=== PATIENT | female | born 1980 | race Caucasian/White ===

== ENCOUNTER → 2019-07-27 | Outpatient (CLI) | payer OTHER ==
[~2019-07-27] MED LIST: ALBIPROI INH; ALBU90OI INH; BCP; CETI10 PO; CETI5 PO; DESO.05TCA TP; HYDACE5 PO; PRED20 PO; RXLORA1 PO; RXSULTRIDS PO; SULTRIDS PO
[2019-07-31 13:07] LABS: HPV 16 Negative (Negative); HPV 18 Negative (Negative); HPV OTHER HR TYPES Negative (Negative)
== END | disposition home or self-care (01) ==
LOC: LAB SHORT 11:50 → LAB 11:50
PROVIDERS: Obstetrics & Gynecology
DX: Z01.419 Encounter for gynecological examination (general) (routine) without abnormal findings (principal)
CPT/HCPCS: 87624; G0123

== ENCOUNTER 2021-02-28 08:46 | Day surgery (SDC) | payer BC ==
[~2021-02-28] VITALS: Ht 170.2 cm; Wt 76.0 kg
--- NOTE | 2021-02-28 09:56 | NUR ---
Ambulatory in Day Surgery History, Chart, Medications and Allergies reviewed before start of procedure. Lungs clear T/O to Auscultation. Patient confirms NPO status and agrees with scheduled surgery. Patient States Post-Procedure ride home has been arranged.
--- NOTE | 2021-02-28 12:50 | NUR ---
PT HAS SMALL AMOUNT OF BURGAUNDY DRAINAGE ON CARLA PAD. PT RECEIVED ONE PAIN PILL AND PO ABX. PT UP TO PEE WITHOUT DIFFICULTY. Patient up to Ambulate independently. Gait steady. Patient States Post-Procedure ride home has been arranged. Discharged via wheelchair to private car for ride home. ALL BELONINGS SENT HOME WITH PATIENT.
[2021-03-03 14:04] LABS: Performing Lab SYMBIODX; Test Name TISSUE BLOCK
== END 2021-03-01 00:37 | disposition home or self-care (01) ==
LOC: ORSCMMR 08:46 → ORD 10:30 → ORSCMMR 10:30
PROVIDERS: Obstetrics & Gynecology
PROC: 10D07Z6 Extraction of Products of Conception, Vacuum, Via Natural or Artificial Opening (ICD-10-PCS; principal; 2021-02-28 10:30)
DX: O36.80X9 Pregnancy with inconclusive fetal viability, other fetus (principal); E28.2 Polycystic ovarian syndrome; F17.210 Nicotine dependence, cigarettes, uncomplicated; J45.990 Exercise induced bronchospasm; Z79.899 Other long term (current) drug therapy
CPT/HCPCS: 36415; 76998; 86850; 86900; 86901; 88305; 88342; 88374; A9270; J1100; J1885; J2210; J2370; J2405; J3010; J7060; J7120

== ENCOUNTER 2022-01-31 16:11 | Emergency (ER) | payer OTHER ==
[~2022-01-31] VITALS: Ht 170.2 cm; Wt 72.6 kg
[2022-01-31 17:32] LABS: BASOPHILS ABSOLUTE AUTO 0.06 K/mm3 (0.00-0.23); BASOPHILS PERCENT AUTO 1 % (0-2); EOSINOPHILS ABSOLUTE AUTO 0.14 K/mm3 (0.00-0.68); EOSINOPHILS PERCENT AUTO 1 % (0-6); Hematocrit 39.9 % (33.0-51.0); Hemoglobin 13.4 g/dL (11.5-16.0); IMMATURE GRAN ABSOLUTE AUTO 0.04 K/mm3 (0.00-0.10); IMMATURE GRAN PERCENT AUTO 0 % (0-1); LYMPHOCYTES ABSOLUTE AUTO 2.72 K/mm3 (0.84-5.20); LYMPHOCYTES PERCENT AUTO 22 % (21-46); MONOCYTES ABSOLUTE AUTO 0.96 K/mm3 (0.16-1.47); MONOCYTES PERCENT AUTO 8 % (4-13); Mean Corpuscular HGB 31.5 pg (26.0-34.0); Mean Corpuscular HGB Conc 33.6 g/dL (31.5-36.5); Mean Corpuscular Volume 94 fL (80-100); Mean Platelet Volume 11.1 fL (9.1-12.4); NEUTROPHILS ABSOLUTE AUTO 8.53 K/mm3 (1.96-9.15); NEUTROPHILS PERCENT AUTO 69 % (41-73); Platelet Count 221 K/mm3 (150-400); RDW Coefficient Variation 13.8 % (11.7-14.2); RDW Standard Deviation 47.5 fL (35.1-46.3); Red Blood Cell Count 4.26 M/mm3 (3.80-5.20); White Blood Cell Count 12.45 K/mm3 (4.00-11.30)
[2022-01-31 17:46] LABS: Albumin, Blood 3.4 g/dL (3.4-5.0); Albumin/Globulin Ratio 1.2 (0.8-1.8); Bilirubin, Total 0.2 mg/dL (0.1-1.0); Bun/Creatinine Ratio 26.7 (12.0-20.0); Calcium, Blood 8.6 mg/dL (8.5-10.1); Creatinine, Blood 0.6 mg/dL (0.40-1.00); Globulin, Blood 2.9 g/dL (2.2-4.0); Potassium, Blood 4.2 mmol/L (3.5-5.5); Total Protein, Blood 6.3 g/dL (6.4-8.2)
[2022-01-31 18:01] LABS: Source, Urine Clean Catch
[2022-01-31 18:08] LABS: Appearance, Urine Clear (Clear); Bilirubin, Urine Neg (Neg); Blood, Urine 5+ (Neg); Color, Urine Yellow (P-Yellow); Glucose Qualitative, Urine Neg (Neg); Ketones, Urine Neg (Neg); Leukocyte Esterase, Urine 1+ (Neg); Nitrite, Urine Neg (Neg); Protein, Urine Neg (Neg); Specific Gravity, Urine 1.005 (1.003-1.022); Urobilinogen, Urine NORM (Normal)
[2022-01-31 18:20] LABS: Bacteria Few /hpf; Squamous Epithelial Cells Few /hpf (Few)
== END 2022-01-31 19:36 | disposition home or self-care (01) ==
LOC: ER 16:11
PROVIDERS: Physician Assistant
DX: O20.0 Threatened abortion (principal); Z3A.08 8 weeks gestation of pregnancy; Z87.891 Personal history of nicotine dependence
CPT/HCPCS: 76801; 80053; 81001; 84702; 85025; 86900; 86901; 93005; 93010; J0153; J7030

== ENCOUNTER 2022-09-10 20:04 | Inpatient (IN) | payer OTHER ==
[~2022-09-10] VITALS: Ht 170.2 cm; Wt 95.4 kg
[2022-09-10] MEDS ORDERED: FISH OIL 1,2001 EAC4 PO (22:42)
[2022-09-10] MEDS ORDERED: ONE A DAY PREN1 EACH PO (22:43)
[2022-09-10 23:12] LABS: BASOPHILS ABSOLUTE AUTO 0.04 K/mm3 (0.00-0.23); BASOPHILS PERCENT AUTO 0 % (0-2); EOSINOPHILS ABSOLUTE AUTO 0.22 K/mm3 (0.00-0.68); EOSINOPHILS PERCENT AUTO 2 % (0-6); Hematocrit 40.4 % (33.0-51.0); Hemoglobin 13.8 g/dL (11.5-16.0); IMMATURE GRAN ABSOLUTE AUTO 0.09 K/mm3 (0.00-0.10); IMMATURE GRAN PERCENT AUTO 1 % (0-1); LYMPHOCYTES ABSOLUTE AUTO 2.25 K/mm3 (0.84-5.20); LYMPHOCYTES PERCENT AUTO 19 % (21-46); MONOCYTES ABSOLUTE AUTO 0.94 K/mm3 (0.16-1.47); MONOCYTES PERCENT AUTO 8 % (4-13); Mean Corpuscular HGB 31.1 pg (26.0-34.0); Mean Corpuscular HGB Conc 34.2 g/dL (31.5-36.5); Mean Corpuscular Volume 91 fL (80-100); Mean Platelet Volume 10.4 fL (9.1-12.4); NEUTROPHILS ABSOLUTE AUTO 8.47 K/mm3 (1.96-9.15); NEUTROPHILS PERCENT AUTO 71 % (41-73); Platelet Count 176 K/mm3 (150-400); RDW Coefficient Variation 13.3 % (11.7-14.2); RDW Standard Deviation 44.9 fL (35.1-46.3); Red Blood Cell Count 4.44 M/mm3 (3.80-5.20); White Blood Cell Count 12.01 K/mm3 (4.00-11.30)
--- NOTE | 2022-09-12 14:48 | NUR ---
DISCHARGE INSTRUCTIONS, WRITTEN AND VERBAL, GIVEN TO PT AND S.O. ANSWERED ALL QUESTIONS AND CONCERNS. FOLLOW UP APPOINTMENT SCHEDULED. ALL PERSONAL BELONGINGS RETURNED. IV DISCONTINUED. PRESCRIPTION CALLED IN BY DR. TRINH. PT IS READY FOR DISCAHRGE AFTER NB 24 HOUR TESTS.
== END 2022-09-12 16:18 | disposition home or self-care (01) | DRG 807 ==
LOC: OBS 20:04 → BC 20:07 → OBS 20:28 → BC 20:29
PROVIDERS: ADMIT Obstetrics & Gynecology
PROC: 10E0XZZ Delivery of Products of Conception, External Approach (ICD-10-PCS; principal; 2022-09-11)
PROC: 3E033VJ Introduction of Other Hormone into Peripheral Vein, Percutaneous Approach (ICD-10-PCS; 2022-09-11)
PROC: 10907ZC Drainage of Amniotic Fluid, Therapeutic from Products of Conception, Via Natural or Artificial Opening (ICD-10-PCS; 2022-09-11)
PROC: 3E0P7VZ Introduction of Hormone into Female Reproductive, Via Natural or Artificial Opening (ICD-10-PCS; 2022-09-11)
PROC: 0UQMXZZ Repair Vulva, External Approach (ICD-10-PCS; 2022-09-11)
PROC: 00HU33Z Insertion of Infusion Device into Spinal Canal, Percutaneous Approach (ICD-10-PCS; 2022-09-11)
PROC: 3E0R3NZ Introduction of Analgesics, Hypnotics, Sedatives into Spinal Canal, Percutaneous Approach (ICD-10-PCS; 2022-09-11)
PROC: 0HQ9XZZ Repair Perineum Skin, External Approach (ICD-10-PCS; 2022-09-11)
DX: O48.0 Post-term pregnancy (principal); Z37.0 Single live birth; Z3A.40 40 weeks gestation of pregnancy; O99.824 Streptococcus B carrier state complicating childbirth; O76 Abnormality in fetal heart rate and rhythm complicating labor and delivery; O70.0 First degree perineal laceration during delivery; O71.82 Other specified trauma to perineum and vulva; Z67.10 Type A blood, Rh positive; Z87.891 Personal history of nicotine dependence; Z79.899 Other long term (current) drug therapy
CPT/HCPCS: 85025; 86850; 86900; 86901; A9270; J0290; J1885; J2210; J2590; J7120

== ENCOUNTER 2023-10-14 11:59 | Day surgery (SDC) | payer BC, OTHER ==
[~2023-10-14] VITALS: Ht 170.2 cm; Wt 82.0 kg
[~2023-10-14 11:59] MED LIST changes: +FISH OIL 1,2001 EAC4 PO; +ONE A DAY PREN1 EACH PO
--- NOTE | 2023-10-14 13:41 | NUR ---
10/14/23 1341 Helene Shipley FLUID DEFICIT OF 300ML
[2023-10-14 14:10] VITALS: BP 120/89
--- NOTE | 2023-10-14 14:11 | NUR ---
10/14/23 1411 Gin Burgos 15 MG TORADOL GIVEN.FOR PAIN 02/27
== END 2023-10-14 14:37 | disposition home or self-care (01) ==
LOC: ORSCSDS 11:59
PROVIDERS: Obstetrics & Gynecology
PROC: 0UDB8ZX Extraction of Endometrium, Via Natural or Artificial Opening Endoscopic, Diagnostic (ICD-10-PCS; principal; 2023-10-14 13:15)
DX: D25.9 Leiomyoma of uterus, unspecified (principal); N96 Recurrent pregnancy loss; Z87.891 Personal history of nicotine dependence
CPT/HCPCS: 88305; A9270; J1885; J2704; J3010

== ENCOUNTER → 2024-01-07 | Outpatient (CLI) | payer OTHER | END | disposition home or self-care (01) | LOC: LAB 14:10 → LAB SHORT 14:10 | DX: Z34.90 Encounter for supervision of normal pregnancy, unspecified, unspecified trimester (principal) | CPT/HCPCS: 84702 ==

== ENCOUNTER → 2025-01-18 | Outpatient (CLI) | payer OTHER | LOC: LAB 18:55 → LAB SHORT 18:55 | DX: O09.523 Supervision of elderly multigravida, third trimester (principal); Z3A.00 Weeks of gestation of pregnancy not specified | CPT/HCPCS: 87081; 87150 ==

== ENCOUNTER 2025-02-09 07:25 | Inpatient (IN) | payer OTHER ==
[2025-02-09] VITALS (27 sets, daily range): BP systolic 89–135; BP diastolic 52–76
[~2025-02-09] VITALS: Ht 170.2 cm; Wt 95.5 kg
[2025-02-09] MEDS ORDERED: FentaNYL 2mcg/ml-Bup 0.1% Epd 250 ML EPI PRN (07:35)
[2025-02-09] MEDS ORDERED: Tranexamic Acid 100 ML IV SCH (07:35)
[2025-02-09] MEDS ORDERED: Methylergonovine Maleate 0.2MG / ML 1ML Amp IM PRN ×2 (07:35→14:25)
[2025-02-09] MEDS ORDERED: ePHEDrine Sulfate 50 MG/ML 1ML Injection XX PRN (07:35)
[2025-02-09] MEDS ORDERED: Lactated Ringer's 1,000 ML IV PRN ×3 (07:35→07:40)
[2025-02-09] MEDS ORDERED: Misoprostol 200 MCG Tab BC PRN (07:35)
[2025-02-09] MEDS ORDERED: Misoprostol 200 MCG Tab PR PRN ×2 (07:35→14:25)
[2025-02-09] MEDS ORDERED: Oxytocin 10 Unit / ML Vial IM PRN (07:35)
[2025-02-09] MEDS ORDERED: OXYTOCIN/RINGER'S LACTATE 500 ML IV PRN (07:35)
[2025-02-09] MEDS ORDERED: Carboprost Tromethamine 250 MCG/ML 1ML Amp IM PRN ×2 (07:35→14:25)
[2025-02-09] MEDS ORDERED: Calcium Carbonate 500 MG Tab Chew PO PRN (07:40)
[2025-02-09] MEDS ORDERED: Acetaminophen 500 MG Tab PO PRN (07:40)
[2025-02-09] MEDS ORDERED: Ondansetron HCl 2 MG / ML 2ML Vial IV PRN (07:40)
[2025-02-09 09:12] LABS: BASOPHILS ABSOLUTE AUTO 0.04 K/mm3 (0.00-0.23); BASOPHILS PERCENT AUTO 0 % (0-2); EOSINOPHILS ABSOLUTE AUTO 0.12 K/mm3 (0.00-0.68); EOSINOPHILS PERCENT AUTO 1 % (0-6); Hematocrit 34.9 % (33.0-51.0); Hemoglobin 11.8 g/dL (11.5-16.0); IMMATURE GRAN ABSOLUTE AUTO 0.08 K/mm3 (0.00-0.10); IMMATURE GRAN PERCENT AUTO 1 % (0-1); LYMPHOCYTES ABSOLUTE AUTO 1.72 K/mm3 (0.84-5.20); LYMPHOCYTES PERCENT AUTO 15 % (21-46); MONOCYTES ABSOLUTE AUTO 0.75 K/mm3 (0.16-1.47); MONOCYTES PERCENT AUTO 7 % (4-13); Mean Corpuscular HGB 30.6 pg (26.0-34.0); Mean Corpuscular HGB Conc 33.8 g/dL (31.5-36.5); Mean Corpuscular Volume 90 fL (80-100); Mean Platelet Volume 9.7 fL (9.1-12.4); NEUTROPHILS ABSOLUTE AUTO 8.46 K/mm3 (1.96-9.15); NEUTROPHILS PERCENT AUTO 76 % (41-73); Platelet Count 158 K/mm3 (150-400); RDW Coefficient Variation 14.2 % (11.7-14.2); RDW Standard Deviation 46.7 fL (35.1-46.3); Red Blood Cell Count 3.86 M/mm3 (3.80-5.20); White Blood Cell Count 11.17 K/mm3 (4.00-11.30)
[2025-02-09] MEDS ORDERED: Lactated Ringer's 1,000 ML IV SCH (14:25)
[2025-02-09] MEDS ORDERED: Measles/Mumps/Rubella Vaccine 0.5 ML Vial SC ONE (14:25)
[2025-02-09] MEDS ORDERED: Lanolin Cream TOP PRN (14:25)
[2025-02-09] MEDS ORDERED: Rho(D) Immune Globulin 300 MCG / SYR IM ONE (14:30)
[2025-02-09] MEDS ORDERED: Docusate Sodium 100 MG Cap PO PRN (14:30)
[2025-02-09] MEDS ORDERED: Witch Hazel/Glycerin PADS TOP PRN (14:30)
[2025-02-09] MEDS ORDERED: Benzocaine Topical Anesthetic Spray 60GM TOP PRN (14:30)
[2025-02-09] MEDS ORDERED: Ibuprofen 400 MG Tab PO PRN (14:30)
[2025-02-09] MEDS ORDERED: Ketorolac Tromethamine 30mg Vial IV SCH (18:00)
--- NOTE | 2025-02-09 20:29 | NUR ---
ASSUMED CARE AT CHANGE OF SHIFT, BEDSIDE SHIFT REPORT REC'D FROM DARIAN RN, PT RESTING IN BED AT THIS TIME, DENIES ANY PAIN OR DISCOMFORT, WELL. NO CONCERNS AT THIS TIME. ABLE TO MAKE WANTS AND NEEDS KNOWN.
[2025-02-10 01:04] VITALS: BP 98/54
[2025-02-10 04:16] VITALS: BP 108/58
--- NOTE | 2025-02-10 06:23 | NUR ---
PT WAS ABLE TO REST WELL IN BETWEEN FEEDS THIS SHIFT. REPORTED IMPROVED COMFORT AFTER ONE DOSE OF TORADOL, IV INFLITRATED THIS SHIFT, OFFERED PATIENT NEW IV OR IBUPROFEN NEEDED, NEITHER OPTION REQUESTED AT THIS TIME. REPORTS MENSTRUAL LIKE BLEEDING WITH NO LARGE CLOTS.
[2025-02-10 07:38] VITALS: BP 104/61
[2025-02-10] MEDS ORDERED: Prenatal Vit/FE Fumarate/FA 1 Tab PO SCH (09:00)
[2025-02-10] MEDS ORDERED: Loratadine 10 MG Tab PO SCH (09:00)
[2025-02-10] MEDS ORDERED: DOCU100 PO (10:09)
[2025-02-10] MEDS ORDERED: IBUP800 PO (10:09)
[2025-02-10 11:43] VITALS: BP 112/54
--- NOTE | 2025-02-10 14:51 | NUR ---
dc instructions given to parents. has 2 week and 6 week appt with [facility] office. will follow up at [facility] as scheduled once newborns tsb results back. all questions answered.
[2025-02-10 15:15] VITALS: BP 103/60
== END 2025-02-10 15:35 | disposition home or self-care (01) | DRG 807 ==
LOC: OBS 07:25 → BC 07:29 → OBS 07:37 → BC 07:38
PROVIDERS: ADMIT Obstetrics & Gynecology
PROC: 10E0XZZ Delivery of Products of Conception, External Approach (ICD-10-PCS; principal; 2025-02-09)
PROC: 0HQ9XZZ Repair Perineum Skin, External Approach (ICD-10-PCS; 2025-02-09)
PROC: 00HU33Z Insertion of Infusion Device into Spinal Canal, Percutaneous Approach (ICD-10-PCS; 2025-02-09)
PROC: 3E0R3BZ Introduction of Anesthetic Agent into Spinal Canal, Percutaneous Approach (ICD-10-PCS; 2025-02-09)
DX: O70.0 First degree perineal laceration during delivery (principal); Z37.0 Single live birth; Z90.89 Acquired absence of other organs; Z79.899 Other long term (current) drug therapy; Z3A.39 39 weeks gestation of pregnancy
CPT/HCPCS: 36415; 51702; 85025; 86850; 86900; 86901; A9270; J1885; J2590; J7120